=== PATIENT | male | born 1940 | race Two or more races ===

== ENCOUNTER 2017-09-05 17:59 | Emergency (ER) | payer MEDICARE ==
[~2017-09-05] VITALS: Ht 165.1 cm; Wt 85.3 kg
--- NOTE | 2017-09-05 18:00 | NUR ---
bb family: swallen tongue, sob, allergic reaction. placed on monitor. awaiting md order
[2017-09-05] MEDS ORDERED: methylPREDNISolone SOD SUCC 125 MG/2ML VIAL ONE (18:06)
[2017-09-05] MEDS ORDERED: diphenhydrAMINE HCL 50 MG/ML VIAL ONE (18:06)
[2017-09-05] MEDS ORDERED: FAMOTIDINE/PF INJ 20 MG/2 ML VIAL IV ONE ×2 (18:07→18:30)
[2017-09-05 18:26] LABS: BASOPHILS # (AUTO) 0.1 /CMM (0.0-0.2); BASOPHILS % (AUTO) 1.1 % (0.0-2.0); EOSINOPHILS # (AUTO) 0.3 /CMM (0.0-0.7); EOSINOPHILS % (AUTO) 3.5 % (0.0-6.0); HEMATOCRIT 44 % (39-51); HEMOGLOBIN 15.3 g/dL (13.5-17.5); LYMPHOCYTES # (AUTO) 2.2 /CMM (0.8-4.8); LYMPHOCYTES % (AUTO) 24.8 % (20.0-44.0); MEAN CORPUSCULAR HEMOGLOBIN 31 PG (26.0-33.0); MEAN CORPUSCULAR HGB CONC 35 g/dl (31.0-36.0); MEAN CORPUSCULAR VOLUME 89 fL (80-96); MONOCYTES # (AUTO) 0.4 /CMM (0.1-1.30); NEUTROPHILS # (AUTO) 5.9 /CMM (1.8-8.9); NEUTROPHILS % (AUTO) 66.6 % (43.0-81.0); PLATELET COUNT (AUTO) 290 /CMM (150-450); RDW COEFFICIENT OF VARIATION 12.8 (11.5-15.0); WHITE BLOOD COUNT (AUTO) 8.9 K/uL (4.3-11.0)
[2017-09-05] MEDS ORDERED: diphenhydrAMINE HCL 50 MG/ML VIAL IV ONE (18:30)
[2017-09-05] MEDS ORDERED: methylPREDNISolone SOD SUCC 125 MG/2ML VIAL IV ONE (18:30)
[2017-09-05 18:38] LABS: CALCIUM, SERUM 9.4 mg/dL (8.5-10.1); CARBON DIOXIDE 26 mmol/L (21-32); CHLORIDE 106 mmol/L (98-107); CREATININE 0.8 mg/dL (0.6-1.3); GLUCOSE 114 mg/dL (74-106); POTASSIUM 4.2 mmol/L (3.5-5.1); SODIUM SERUM 139 mmol/L (136-145); UREA NITROGEN, BLOOD 8 mg/dL (7-18)
[2017-09-05 18:41] LABS: INR 0.89 (0.87-1.13); PROTHROMBIN TIME 9.3 SECS (9.5-12.7)
[2017-09-05 18:48] LABS: TROPONIN I < 0.017 ng/mL (0.00-0.056)
--- NOTE | 2017-09-05 19:10 | NUR ---
gave report to dangelo for andrei
--- NOTE | 2017-09-05 19:12 | NUR ---
SPOKE TO DR. ALBARRAN RE: PT'S EDEMATOUS TONGUE. PT REFUSED EPI AND INTUBATION. PT STATED THAT HE WAS TOLD BY HIS EARLY YEARS TEACHER NOT TO EVER TAKE EPI.
--- NOTE | 2017-09-05 19:19 | NUR ---
PT APPEARS TO BE RESTING COMFORTABLY WITH EVEN AND UNLABORED RESP. PT IS ON THE MONITOR AND CONTINUOUS PULSE OX. PT'S TONGUE IS STILL SWOLLEN. PT REFUSED TYPE AND SCREEN BLOOD DRAW BY BLUEPRINT CUTTER. DR. ALBARRAN IS AWARE.
--- NOTE | 2017-09-05 19:26 | NUR ---
PT IS ABLE TO SPEAK IN COMPLETE SENTENCES. VSS.
--- NOTE | 2017-09-05 20:12 | NUR ---
DR. ALBARRAN IS AT THE BEDSIDE SPEAKING TO THE PT. PT TO BE D/C'D HOME.
--- NOTE | 2017-09-05 20:45 | NUR ---
IV removed. Catheter intact and site benign. Pressure and 4x4 applied to site. No bleeding noted.Patient discharged to home in stable condition. Written and verbal after care instructions given. Patient verbalizes understanding of instruction. PT'S SON IS AT THE BEDSIDE AND ALSO UNDERSTANDS D/C INFORMATION. PT'S TONGUE IS STILL SWOLLEN, BUT HAS REDUCED CONSIDERABLY. PT AMBULATED OUT WITH A STEADY GAIT. VSS.
[2017-09-05 20:46] VITALS: BP 136/77
== END 2017-09-05 20:47 | disposition home or self-care (01) ==
LOC: ER 18:02
DX: T78.3XXA Angioneurotic edema, initial encounter (principal); I10 Essential (primary) hypertension; I25.10 Atherosclerotic heart disease of native coronary artery without angina pectoris
CPT/HCPCS: 36415; 71010; 80048; 84484; 85025; 85730; 93005; 96374; 96375; 99291; A4606; J1200; J2930; J3490; J7030; Z7610

== ENCOUNTER 2017-09-08 22:22 | Emergency (ER) | payer MEDICARE, MEDICAID ==
[~2017-09-08] VITALS: Ht 162.6 cm; Wt 80.7 kg
[2017-09-08 22:24] VITALS: BP 172/88
--- NOTE | 2017-09-09 00:03 | NUR ---
PER ADMITTING, PT LEFT
== END 2017-09-09 00:04 | disposition home or self-care (01) ==
LOC: ER 22:24
DX: I10 Essential (primary) hypertension (principal)
CPT/HCPCS: A4606; Z7610

== ENCOUNTER 2018-04-27 19:17 | Inpatient (IN) | payer MEDICARE, MEDICAID ==
[~2018-04-27] VITALS: Ht 162.6 cm; Wt 82.6 kg
[2018-04-27] MEDS ORDERED: FAMOTIDINE/PF INJ 20 MG/2 ML VIAL IV ONE (19:30)
[2018-04-27] MEDS ORDERED: IV NS 0.9% 500 ML BAG IV ONE (19:30)
[2018-04-27] MEDS ORDERED: methylPREDNISolone SOD SUCC 125 MG/2ML VIAL IV ONE (19:30)
[2018-04-27] MEDS ORDERED: diphenhydrAMINE HCL 50 MG/ML VIAL IV ONE (19:30)
[2018-04-27 19:50] LABS: BASOPHILS % (AUTO) 0.2 % (0.0-2.0); EOSINOPHILS % (AUTO) 4.3 % (0.0-6.0); HEMATOCRIT 44 % (39-51); HEMOGLOBIN 14.8 g/dL (13.5-17.5); LYMPHOCYTES # (AUTO) 2.1 /CMM (0.8-4.8); LYMPHOCYTES % (AUTO) 28.7 % (20.0-44.0); MEAN CORPUSCULAR HEMOGLOBIN 30 PG (26.0-33.0); MEAN CORPUSCULAR HGB CONC 34 g/dl (31.0-36.0); MEAN CORPUSCULAR VOLUME 90 fL (80-96); MONOCYTES # (AUTO) 0.6 /CMM (0.1-1.30); MONOCYTES % (AUTO) 7.7 % (2.0-12.0); NEUTROPHILS # (AUTO) 4.5 /CMM (1.8-8.9); NEUTROPHILS % (AUTO) 59.1 % (43.0-81.0); PLATELET COUNT (AUTO) 261 /CMM (150-450); RDW COEFFICIENT OF VARIATION 12.7 (11.5-15.0); RED BLOOD CELL COUNT(AUTO) 4.85 MIL/uL (4.5-6.0); WHITE BLOOD COUNT (AUTO) 7.5 K/uL (4.3-11.0)
[2018-04-27 19:59] LABS: CALCIUM, SERUM 9.4 mg/dL (8.5-10.1); CARBON DIOXIDE 30 mmol/L (21-32); CHLORIDE 104 mmol/L (98-107); CREATININE 1.1 mg/dL (0.6-1.3); GLUCOSE 128 mg/dL (74-106); SODIUM SERUM 138 mmol/L (136-145); UREA NITROGEN, BLOOD 14 mg/dL (7-18)
--- NOTE | 2018-04-27 20:00 | NUR ---
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 PT SON STATES PT HAS CHRONIC SWELLING. TOOK 50MG PREDNISONE CANNERY TENDER ENGINEER. PT AMBULATED TO BED WITH A STEADY GAIT. PT UNALBE TO VERBALIZE NEEDS DUE TO TONGUE SWELLING, BUT BREATHING AND RESPIRATIONS WNL. PT PLACED ON MONTIOR WITH HR @ 80. BP 149/75 WITH O2 SAT @ 95%. SON IS AT BEDSIDE. AWAITING MD AMAYA.
[2018-04-27 20:08] LABS: TROPONIN I < 0.017 ng/mL (0.00-0.056)
[2018-04-27 20:11] LABS: INR 0.94 (0.85-1.15)
[2018-04-27 20:17] LABS: ALANINE AMINOTRANSFERASE 28 U/L (12-78); ALBUMIN 3.8 g/dL (3.4-5.0); ALKALINE PHOSPHATASE 81 U/L (46-116); ASPARTATE AMINOTRANSFERASE 20 U/L (15-37); BILIRUBIN,DIRECT 0.1 mg/dL (0.0-0.2); BILIRUBIN,TOTAL 0.5 mg/dL (0.2-1.0); LIPASE 171 U/L (73-393); TOTAL PROTEIN, SERUM 7.4 g/dL (6.4-8.2)
--- NOTE | 2018-04-27 20:36 | NUR ---
PT. REFUSES TO HAVE X-RAY DONE NOW. KEEPS SAYING TO "COME BACK IN HALF HOUR." RN AND MD AWARE
--- NOTE | 2018-04-27 21:43 | NUR ---
CALLED NURSE SUP FOR TELE BED
[2018-04-27 22:00] VITALS: BP 129/75
--- NOTE | 2018-04-27 22:00 | NUR ---
SUPERVISOR NUTRITIONAL YEAST NOTES RECEIVED PT FROM ED. PT A&OX4. PT PLACED ON SOFT METALS HAND ENGRAVER, PT IS SR, HR OF 70 WITH BBB. PT AMBULATES AD [place]. SKIN INTACT. IV IN (L) AC #20 WITH 0.9NS 2 75MLS/ HR. PT REPORTS NO PAIN AT THIS TIME. DVT PUMP APPLIED ORDERED. ALL SAFETY PRECAUTIONS TAKEN, BED IN LOW LOCKED POSITION, CALL LIGHT WITHIN REACH. WILL CONT TO MONITOR.
--- NOTE | 2018-04-27 22:03 | NUR ---
REPORT GIVEN TO LAKESHIA DE GUZMAN FOR ADMISSION. NAD NOTED. PT REPORTS MINIMAL RELIEF OF SWELLING BUT RESPIRATIONS REMAIN UNLABORED AND EVEN
[2018-04-27] MEDS ORDERED: IV NS 0.9% 1,000 ML IV PRN (23:39)
[2018-04-28] VITALS: BP 135/69
[2018-04-28] MEDS ORDERED: ONDANSETRON HCL/PF 4 MG/2 ML VIAL IVP PRN
[2018-04-28] MEDS ORDERED: HYDROCODONE/APAP 5/325MG 1 EACH TABLET PO PRN
[2018-04-28] MEDS ORDERED: MAGNESIUM HYDROXIDE 30 ML UDC PO PRN
[2018-04-28] MEDS ORDERED: ZOLPIDEM TARTRATE 5 MG TABLET PO PRN
[2018-04-28] MEDS ORDERED: MAG HYDROX/AL HYDROX/SIMETH 30 ML UDC PO PRN
[2018-04-28] MEDS ORDERED: ACETAMINOPHEN 325 MG TABLET PO PRN
[2018-04-28] MEDS ORDERED: diphenhydrAMINE HCL 50 MG CAPSULE PO PRN
[2018-04-28 06:00] VITALS: BP 132/79
--- NOTE | 2018-04-28 06:56 | NUR ---
RN CLOSING NOTES NO SIGNIFICANT CHANGE IN PTS CONDITION OVER NIGHT. PT STATES HE IS HAVING NO PAIN AND HIS TONGUE IS FEELING LESS SWOLLEN. PT REFUSED IV FLUIDS. REFUSED TO HAVE HIS AM LABS DRAW. WILL ENDORSE TO AM RN FOR AIDA.
[2018-04-28] MEDS ORDERED: ROSU20TA PO (07:16)
[2018-04-28] MEDS ORDERED: AMLO5TAB2 PO (07:16)
[2018-04-28] MEDS ORDERED: ASPI-1152 PO (07:16)
[2018-04-28] MEDS ORDERED: CHOL100062 PO (07:16)
[2018-04-28] MEDS ORDERED: PANT20TA2 PO (07:16)
[2018-04-28] MEDS ORDERED: ALPR0.255 PO (07:16)
[2018-04-28] MEDS ORDERED: PRED5TAB PO (07:16)
[2018-04-28] MEDS ORDERED: METO-356 PO (07:16)
[2018-04-28 08:00] VITALS: BP 149/90
[2018-04-28] MEDS: methylPREDNISolone SOD SUCC 40 MG/ML VIAL IV SCH ×2 (08:25→08:39)
[2018-04-28] MEDS: FAMOTIDINE (20 MG) 20 MG TABLET PO SCH ×2 (08:25→08:39)
--- NOTE | 2018-04-28 08:39 | NUR ---
RN NOTE PT REFUSED AM MEDS. RISKS AND BENEFITS EXPLAINED, PT STILL REFUSED. PT WANTS TO LEAVE [facility] BY 0900 AM BECAUSE HE HAS DOCTOR'S APPOINTMENT AT 1100, NOTIFIED. PT CLAIMS HE TOOK HIS HOME MEDS: AMLODIPINE, METOPROLOL, VIT D, ASPIRIN. VS STABLE. WILL MONITOR PT.
--- NOTE | 2018-04-28 10:16 | NUR ---
RN NOTE PT D/C HOME IN STABLE CONDITION, PAPERS SIGNED, DISCHARGE INSTRUCTIONS PROVIDED, EXIT CARE DONE, TEACHINGS DONE TO PT, PT VERBALIZED UNDERSTANDING, BELONGINGS LIST SIGNED, BELONGINGS AT BEDSIDE WITH PT, SKIN IS INTACT, IV AND ID BAND REMOVED. PT AMBULATORY, LEFT VIA OWN PRIVATE TRANSPORTATION WITH FAMILY MEMBER.
== END 2018-04-28 10:25 | disposition home or self-care (01) | DRG 916 ==
LOC: ER 19:18 → TELE1 21:49
PROVIDERS: ADMIT Hospitalist; ATTEND Hospitalist
DX: T78.3XXA Angioneurotic edema, initial encounter (principal); I25.10 Atherosclerotic heart disease of native coronary artery without angina pectoris; I10 Essential (primary) hypertension; E66.9 Obesity, unspecified; T46.5X5A Adverse effect of other antihypertensive drugs, initial encounter; Z88.1 Allergy status to other antibiotic agents; Z88.5 Allergy status to narcotic agent; Z88.0 Allergy status to penicillin; Y92.009 Unspecified place in unspecified non-institutional (private) residence as the place of occurrence of the external cause; Z98.61 Coronary angioplasty status; Z68.31 Body mass index [BMI] 31.0-31.9, adult
CPT/HCPCS: 36415; 71045-TC; 80048-TC; 80076-TC; 83690-TC; 84484-TC; 85025-TC; 85730-TC; 92611-TC; A4606; J1200; J2920; J2930; J3490; J7030; J7040; Z7610

== ENCOUNTER 2024-03-13 02:17 | Emergency (ER) | payer MEDICARE, OTHER ==
[~2024-03-13] VITALS: Ht 160 cm; Wt 90.7 kg
[~2024-03-13 02:17] MED LIST: ALPR0.255 PO; AMLO-212 PO; ASPI-1420 PO; CHOL100062 PO; METO25TA4 PO; PANT20TA2 PO; PRED5TAB PO; ROSU20TA2 PO
[2024-03-13] MEDS ORDERED: methylPREDNISolone SOD SUCC 125 MG/2ML VIAL ONE ×2 (02:40→07:08)
[2024-03-13] MEDS ORDERED: FAMOTIDINE/PF INJ 20 MG/2 ML VIAL IV ONE (02:40)
[2024-03-13] MEDS ORDERED: diphenhydrAMINE HCL 50 MG/ML VIAL ONE (02:41)
[2024-03-13] MEDS: IV NS 0.9% 1,000 ML BAG IV ONE (02:53)
[2024-03-13 02:54] LABS: BASOPHILS % (AUTO) 0.1 % (0.0-2.0); EOSINOPHILS % (AUTO) 0.4 % (0.0-6.0); HEMATOCRIT 38 % (39-51); HEMOGLOBIN 12.7 g/dL (13.5-17.5); LYMPHOCYTES % (AUTO) 10.2 % (20.0-44.0); MEAN CORPUSCULAR HEMOGLOBIN 29 PG (26.0-33.0); MEAN CORPUSCULAR HGB CONC 34 g/dl (31.0-36.0); MEAN CORPUSCULAR VOLUME 85 fL (80-96); MONOCYTES # (AUTO) 0.3 K/uL (0.1-1.30); MONOCYTES % (AUTO) 3.3 % (2.0-12.0); NEUTROPHILS # (AUTO) 8.4 K/uL (1.8-8.9); PLATELET COUNT (AUTO) 282 K/uL (150-450); RED BLOOD CELL COUNT(AUTO) 4.43 MIL/uL (4.5-6.0); WHITE BLOOD COUNT (AUTO) 9.7 K/uL (4.3-11.0)
[2024-03-13] MEDS: diphenhydrAMINE HCL 50 MG/ML VIAL IV ONE ×2 (02:54→02:59)
[2024-03-13] MEDS: FAMOTIDINE/PF INJ 20 MG/2 ML VIAL IV ONE (02:55)
[2024-03-13] MEDS: methylPREDNISolone SOD SUCC 125 MG/2ML VIAL IV ONE (02:55)
[2024-03-13 03:02] LABS: CALCIUM, SERUM 9.8 mg/dL (8.5-10.1); CARBON DIOXIDE 27 mmol/L (21-32); CHLORIDE 101 mmol/L (98-107); GLUCOSE 173 mg/dL (74-106); POTASSIUM 4.4 mmol/L (3.5-5.1); SODIUM SERUM 138 mmol/L (136-145); UREA NITROGEN, BLOOD 15 mg/dL (7-18)
[2024-03-13 03:08] LABS: ALANINE AMINOTRANSFERASE 25 U/L (12-78); ALBUMIN 3.1 g/dL (3.4-5.0); ALKALINE PHOSPHATASE 78 U/L (46-116); ASPARTATE AMINOTRANSFERASE 23 U/L (15-37); BILIRUBIN,DIRECT 0.2 mg/dL (0.0-0.2); BILIRUBIN,TOTAL 0.6 mg/dL (0.2-1.0); TOTAL PROTEIN, SERUM 7.4 g/dL (6.4-8.2)
[2024-03-13] MEDS ORDERED: TRANEXAMIC ACID 1,000 MG/10 ML VIAL IV ONE (07:00)
[2024-03-13] MEDS: methylPREDNISolone SOD SUCC 125 MG/2ML VIAL IM ONE (07:13)
[2024-03-13 07:38] VITALS: BP 139/78; TEMP 98.2; O2SAT 98
== END 2024-03-13 07:39 | disposition home or self-care (01) ==
LOC: ER 02:41
DX: T78.3XXA Angioneurotic edema, initial encounter (principal); I10 Essential (primary) hypertension; Z98.890 Other specified postprocedural states; Z79.82 Long term (current) use of aspirin; Z79.899 Other long term (current) drug therapy; Z79.52 Long term (current) use of systemic steroids; Z88.0 Allergy status to penicillin; Z88.5 Allergy status to narcotic agent; Y92.89 Other specified places as the place of occurrence of the external cause
CPT/HCPCS: 99285; 96374; 96375; 71045; 96361; 93005; 85025; 80048; 80076; 36415; 84484; 96372; J1200; J3490; J7030; J2919